=== PATIENT | female | born 1975 | race Caucasian/White ===

== ENCOUNTER 2020-02-13 18:21 | Emergency (ER) | payer OTHER ==
[~2020-02-13] VITALS: Ht 180.3 cm; Wt 83.9 kg
[2020-02-13 18:22] VITALS: BP 148/88
[2020-02-13 18:49] LABS: URINE BILIRUBIN NEGATIVE (Negative); URINE BLOOD NEGATIVE (Negative); URINE CLARITY CLEAR; URINE COLOR YELLOW; URINE GLUCOSE-RANDOM* 3+ (Negative); URINE KETONES NEGATIVE (Negative); URINE LEUKOCYTES-REFLEX NEGATIVE (Negative); URINE NITRITE-REFLEX NEGATIVE (Negative); URINE PROTEIN (DIPSTICK) NEGATIVE (Negative); URINE UROBILINOGEN 0.2 E.U./dl (0.2-1.0)
[2020-02-13 18:53] LABS: ABSOLUTE NEUTROPHILS 3.9 thou/uL (1.4-8.2); BASOPHILS 0.7 % (0.0-2.0); EOSINOPHILS 1.3 % (0.0-3.0); HEMATOCRIT 45.3 % (37.0-47.0); HEMOGLOBIN 15.2 gm/dL (12.0-15.0); LYMPHOCYTES 33.8 % (24.0-44.0); MCH 27.3 pg (26.0-34.0); MCHC 33.5 g/dL (28.0-37.0); MCV 81.4 fL (80.0-100.0); MONOCYTES 4.3 % (1.0-8.0); PLATELET COUNT 183 thou/uL (150-400); POLYS 59.9 % (36.0-66.0); RBC 5.57 mil/uL (4.20-5.00); RDW 15.2 % (10.5-14.5); WBC 6.5 thou/uL (4.0-11.0)
[2020-02-13 18:55] LABS: ANION GAP 12 mmol/L (7-16); BUN 10 mg/dL (7-18); CALCIUM 9.4 mg/dL (8.5-10.1); CHLORIDE 100 mmol/L (98-107); CO2 24 mmol/L (21-32); CREATININE 0.6 mg/dL (0.6-1.0); GLUCOSE 236 mg/dL (74-106); POTASSIUM 3.4 mmol/L (3.5-5.1); SODIUM 136 mmol/L (136-145)
[2020-02-13 18:57] LABS: AMP/METHAMP Negative (Negative); BARBITURATES Negative (Negative); BENZODIAZEPINES Negative (Negative); COCAINE Negative (Negative); METHADONE Negative (Negative); OPIATES Negative (Negative); PCP Negative (Negative)
[2020-02-13 19:02] LABS: ALBUMIN 4.2 g/dL (3.4-5.0); SALICYLATE 4.3 mg/dL (2.8-20.0); SGOT 11 U/L (15-37); SGPT 17 U/L (30-65); TOTAL BILIRUBIN 0.3 mg/dL (<0.1-1.0); TOTAL PROTEIN 7.9 g/dL (6.4-8.2)
--- NOTE | 2020-02-14 08:10 | EKG ---
[facility] [place] [address] ELECTROCARDIOGRAM REPORT Name: MILIND LOCKE Room #: DEP [facility]#: [id number] Admission: 02/13/20 Attend Phys: Discharge: 02/13/20 Date of : 73 Report #: [id number] THIS REPORT FOR: cc: TIMMY - Marissa family physician/PCP TIMMY - Marissa family physician/PCP Itz Mcmillan MD [facility] THIS REPORT FOR: //name// [facility] ED Test Date: 2020-02-13 Test Time: 19:31:50 Pat Name: MILIND GUERRIER Department: Room: Gender: Public Works Inspector: : 1975 Requested By: Alfonso Emery Order Number: [id number] MD: Itz Mcmillan Measurements Intervals [place] Rate: 67 P: 54 IA: 141 QRS: 74 QRSD: 90 T: 36 QT: 405 QTc: 428 Interpretive Statements Sinus rhythm Normal tracing No previous ECG available for comparison Electronically Signed On 02-14-2020 8:09:12 CDT by Itz Mcmillan [email or web address] <ELECTRONICALLY SIGNED> By: Itz Mcmillan MD, FAC 02/14/20 0809 30 30 Itz Mcmillan MD, FACC /EPI
== END 2020-02-13 21:06 | disposition home or self-care (01) ==
LOC: ER 18:21
PROVIDERS: Emergency Medicine
DX: T45.0X2A Poisoning by antiallergic and antiemetic drugs, intentional self-harm, initial encounter (principal); F32.9 Major depressive disorder, single episode, unspecified; Z88.0 Allergy status to penicillin; Y92.89 Other specified places as the place of occurrence of the external cause